=== PATIENT | male | born 1990 | race Hispanic/Latino ===

== ENCOUNTER → 2019-04-05 16:17 | Outpatient (CLI) | payer OTHER, SELFPAY ==
[2013-10-13 13:57] VITALS: BMI 40.4
[2019-04-05 17:39] LABS: EST Glomerular Filtration Rate 93 mL/min (>60); Est Glom Filt Rate - Afr Amer 113 mL/min (>60)
== END ==
PROVIDERS: Family Provider Nurse Practitioner Primary Care; PCP Nurse Practitioner Primary Care; Visit Provider Nurse Practitioner Adult Health
DX: N20.1 Calculus of ureter (principal); R10.9 Unspecified abdominal pain
CPT/HCPCS: 36415; 82565

== ENCOUNTER 2021-03-16 07:34 | Emergency (ER) | payer OTHER, SELFPAY ==
[2021-03-16 07:36] VITALS: BP 148/91; PULSE 66; RESP 16; TEMP 36.7; O2SAT 100; BMI 35.9
--- NOTE | 2021-03-16 07:57 | EDS_ITS ---
HPI HPI - GI History of Present Illness Chief Complaint: Foreign Body Narrative Narrative: 30-year-old male presenting with foreign body sensation in his throat. He states he fell asleep with gum in his mouth possibly and he woke up gagging and choking. He did not vomit up any gum that he knows of. He did not cough this up. By the time he got to [facility] he was tolerating his own secretions and breathing normally. He did state that when he was gagging he did spit up a small amount of blood tingeing. Patient has not had repeat of this. Currently he has no shortness of breath. He does state that when he swallows he has irritation but he is tolerating his own secretions. He had a CT soft tissue neck at [facility] which was negative for any acute findings. Patient was referred to [facility] for evaluation due to his ongoing irritation. [facility] Medical History no medical history Allergy/AdvReac Type Severity Reaction Status Date / Time No Known Allergies Allergy Verified 03/16/21 07:38 Social History Smoking Status: Former smoker ROS ROS ED Constitutional Constitutional ED: Denies chills or fever(s) ENT ENT ED: Denies rhinorrhea or sore throat Cardiovascular Cardiovascular: Denies chest pain or palpitations Respiratory/Chest Respiratory/Chest: Reports cough; Denies dyspnea Gastrointestinal Gastrointestinal: Reports other Details: Gagging episode. Blood tingeing in emesis. Genitourinary Genitourinary ED: Denies dysuria or hematuria Musculoskeletal Musculoskeletal: Denies arthralgias or myalgias Integumentary Denies abscess or rash Neurologic Neurologic: Denies headache(s) or paresthesias EXAM Physical Exam Const Vital Signs: 03/16/21 07:36 03/16/21 07:43 Temperature 98.0 F Temperature Source Temporal Pulse Rate 66 Respiratory Rate 16 Respiratory Effort Normal Blood Pressure 148/91 H Blood Pressure Mean 110 Pulse Ox 100 Oxygen Delivery Method Room Air Positive well nourished General Appearance ED: NAD; Negative for pallor HEENT Reports moist mucous membranes HEENT Narrative: Patient tolerating his own secretions. Speaking in full sentences. normocephalic and atraumatic Eyes PERRL and EOMs intact bilaterally Neck no lymphadenopathy and supple Neck Narrative: No stridor. Resp normal respiratory effort and clear to auscultation bilaterally Cardio regular rate and regular rhythm Neuro Sensorium / Orientation: alert, oriented to person, oriented to place and oriented to time Psych mental status grossly normal and thought process normal Skin General Skin Exam: Negative for jaundice or pallor MDM MDM MDM Narrative Medical decision making narrative: Patient presenting with foreign body sensation in esophagus. He is tolerating his own secretions. He is speaking in full sentences. There is no stridor on exam. No crepitance palpated. Pulse ox is 100% on room air. I did [facility] the [facility] and found this showed no acute abnormality or obstruction. Patient was discussed with Dr. Mosley who believes he would likely experience irritation for a couple of days but did not need emergent upper endoscopy. Patient will be given a GI cocktail in the ED. He was given return precautions. Patient will be given outpatient follow-up with Dr. Mosley as needed or return to the ER for new or worsening symptoms. Impression: 1. Globus hystericus Discharge Plan Triage Chief Complaint: Foreign Body ED Provider: Efrain Chavez Dx/Rx/DC Orders Instructions: ED Esophageal Foreign Body, Resolved Primary Care Provider: Mary Magana NP Referrals: Rusty Mosley DO [STAFF PHYSICIAN] - As Needed Mary Magana NP, [employer] [Primary Care Provider] - Disposition Disposition: Home, Self Care
[2021-03-16] MEDS: Mag Hydrox/Al Hydrox/Simeth 30 ML UDC PO (08:05)
== END 2021-03-16 08:22 | disposition home or self-care (01) ==
LOC: ED 08:13
PROVIDERS: Emergency Provider Student in an Organized Health Care Education/Training Program; PCP Nurse Practitioner Primary Care
DX: F45.8 Other somatoform disorders (principal); R05.9 Cough, unspecified; Z87.891 Personal history of nicotine dependence
CPT/HCPCS: 99283